=== PATIENT | male | born 1980 | race Caucasian/White ===

== ENCOUNTER 2019-05-04 22:05 | Emergency (ER) | payer MEDICAID, OTHER ==
[~2019-05-04] VITALS: Ht 180.3 cm; Wt 99.3 kg
[~2019-05-04 22:05] MED LIST: TRAM50TA1 PO
[2019-05-04 22:22] VITALS: BP 120/80
[2019-05-04 22:43] VITALS: BP 120/80
--- NOTE | 2019-05-04 22:43 | NUR ---
38 Y/O M PRESENTED TO ED WITH C/O L THIGH PAIN X8 HOURS. 5/10 PAIN, BURNING AND INTERMINTENT. PAIN DOESN'T RADIATE. PER PT, " I WAS PLAYING SOCCER AND JUMPING AROUND WHEN I LANDED, MY LEG HURTED." PAIN ONLY DURING AMBULATATION. PT SELF MEDICATED WITH BENGAY AND TYLENOL WITH SOME RELIEF. +CMS. PT SEATED IN BEDSIDE CHAIR. ERMD NOTIFIED. WILL CONTINUE TO MONITOR.
[2019-05-04] MEDS ORDERED: KETOROLAC 60 MG/2 ML VIAL IM ONE (23:45)
--- NOTE | 2019-05-05 00:22 | NUR ---
Patient discharged with v/s stable. Written and verbal after care instructions given and explained. Patient alert, oriented and verbalized understanding of instructions. Ambulatory with steady gait. All questions addressed prior to discharge. ID band removed. Patient advised to follow up with PMD. Rx of [facility] given. Patient educated on indication of medication including possible reaction and side effects. Opportunity to ask questions provided and answered.
== END 2019-05-05 00:22 | disposition home or self-care (01) ==
LOC: MED 22:05
DX: M79.652 Pain in left thigh (principal); E78.5 Hyperlipidemia, unspecified; Z79.899 Other long term (current) drug therapy; X58.XXXA Exposure to other specified factors, initial encounter; Y93.02 Activity, running; Y92.89 Other specified places as the place of occurrence of the external cause; Y99.8 Other external cause status
CPT/HCPCS: 96372; 99283; J1885